=== PATIENT | female | born 1985 | race Caucasian/White ===

== ENCOUNTER 2024-03-31 15:05 | Emergency (ER) | payer BC ==
[~2024-03-31] VITALS: Ht 167.6 cm; Wt 104.3 kg
[2024-03-31 15:12] VITALS: BP 137/83; TEMP 98.3; O2SAT 99
== END 2024-03-31 16:12 | disposition home or self-care (01) ==
LOC: ER 15:11
DX: J06.9 Acute upper respiratory infection, unspecified (principal); F17.200 Nicotine dependence, unspecified, uncomplicated; Z90.710 Acquired absence of both cervix and uterus

== ENCOUNTER 2024-07-07 12:02 | Emergency (ER) | payer BC ==
[~2024-07-07] VITALS: Ht 170.2 cm; Wt 141.3 kg
[2024-07-07 12:29] VITALS: BP 105/67; TEMP 98.4; O2SAT 96
[2024-07-07] MEDS ORDERED: NAPR-1164 PO (12:39)
[2024-07-07] MEDS ORDERED: KETOROLAC TROMETHAMINE 15 MG/ML VIAL ONE (12:39)
[2024-07-07] MEDS: KETOROLAC TROMETHAMINE 15 MG/ML VIAL IM ONE (12:40)
== END 2024-07-07 13:28 | disposition home or self-care (01) ==
LOC: ER 12:02
DX: M17.0 Bilateral primary osteoarthritis of knee (principal); F17.200 Nicotine dependence, unspecified, uncomplicated; E66.01 Morbid (severe) obesity due to excess calories; Z68.42 Body mass index [BMI] 45.0-49.9, adult; Z90.710 Acquired absence of both cervix and uterus; Z60.2 Problems related to living alone
CPT/HCPCS: 99283; 96372; J1885